=== PATIENT | female | born 2000 | race Caucasian/White ===

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

== ENCOUNTER 2019-04-27 10:48 | Emergency (ER) | payer BC ==
--- NOTE | 2019-04-27 11:05 | UC ---
Throat Pain/Nasal Miguel HPI - HPI Summary HPI Summary: 19 yo female presents with URI symptoms. She tells me that for the last 5 days she has had a sore throat, dry cough, and mild sinus congestion. Over the last 2 days her sore throat has gotten worse and her voice has been raspy. She states that her chest feels tight with breathing at times - worse in the cold air. Has not taken anything OTC for her symptoms. Denies fever, chills, SOB, chest pain, rash. She does not smoke. - History of Current Complaint Stated Complaint: SORE THROAT, CHEST CONGESTION Time Seen by Provider: 04/27/19 11:05 Hx Obtained From: Patient Hx Last Menstrual Period: 11/24/16 Onset/Duration: Sudden Onset Severity: Moderate Pain Intensity: 5 Pain Scale Used: 0-10 Numeric - Allergies/Home Medications Allergies/Adverse Reactions: Allergies Allergy/AdvReac Type Severity Reaction Status Date / Time No Known Allergies Allergy Verified 04/27/19 11:10 Home Medications: Home Medications Escitalopram * [Lexapro *] 20 mg PO DAILY 04/27/19 [History Confirmed 04/27/19] Ibuprofen TAB* [Advil TAB*] 200 mg PO Q6H PRN 04/27/19 [History Confirmed ] Norgestimate-Ethinyl Estradiol [Sprintec 28 0.25-35 mg-Mcg] 1 tab PO DAILY 04/27 [History Confirmed 04/27/19] PMH/Surg Hx/FS Hx/Imm Hx - Additional Past Medical History Additional PMH: None Psychological History: Anxiety, Depression - Surgical History Surgical History: None - Family History Known Family History: Negative: Diabetes - Social History Occupation: Student Lives: Dormitory/Roommates Alcohol Use: Occasionally Substance Use Type: None Smoking Status (MU): Never Smoked Tobacco Have You Smoked in the Last Year: No - Immunization History Vaccination Up to Date: Yes Review of Systems All Other Systems Reviewed And Are Negative: No Constitutional: Positive: Negative Skin: Positive: Negative Eyes: Positive: Negative ENT: Positive: Sore Throat Respiratory: Positive: Cough Cardiovascular: Positive: Negative Gastrointestinal: Positive: Negative Neurological: Positive: Negative Psychological: Positive: Negative Physical Exam - Summary Physical Exam Summary: GENERAL: NAD. WDWN. No pain distress. SKIN: No rashes, sores, lesions, or open wounds. HEENT: Head: AT/NC Eyes: EOM intact. Conjunctiva clear without inflammation or discharge. Ears: Hearing grossly normal. TMs intact, no bulging, erythema, or edema. Nose: Nasal mucosa pink and moist. NTTP maxillary and frontal sinus. Throat: Posterior oropharynx without exudates, erythema, or tonsillar enlargement. Uvula midline. NECK: Supple. Nontender. No lymphadenopathy. CHEST: CTAB. No accessory muscle use. Breathing comfortably and in no distress. CV: RRR. Pulses intact. Cap refill <2seconds NEURO: Alert. PSYCH: Age appropriate behavior. Triage Information Reviewed: Yes Vital Signs: Vital Signs: Temp Pulse Resp BP Pulse Ox 98.9 F 90 16 126/71 96 04/27/19 11:06 04/27/19 11:06 04/27/19 11:06 04/27/19 11:06 04/27/19 11:06 Laboratory Tests 04/27/19 11:20 Group A Strep Rapid Negative Vital Signs Reviewed: Yes Throat Pain/Nasal Course/Dx - Course Course Of Treatment: POC strep negative. Exam WNL. In the clinic she was given a duoneb treatment for her subjective chest tightness and felt easier to take a deep breath. Suspect viral URI. Advised to try OTC supportive care and f/u if symptoms worsen or do not improve - Differential Dx/Diagnosis Provider Diagnosis: Upper respiratory infection Discharge ED - Sign-Out/Discharge Documenting (check all that apply): Patient Departure All imaging exams completed and their final reports reviewed: No Studies - Discharge Plan Condition: Stable Disposition: HOME Patient Education Materials: Upper Respiratory Infection (ED) Referrals: Tristin Raines MD [Primary Care Provider] - Additional Instructions: Your symptoms are likely from a viral infection. Viral infections do not respond to antibiotics and are limited to the treatment of symptoms. Viral infections typically run their course in 7-10 days. Drink plenty of fluids, especially if you are running any fever. Use salt water gargles several times a day. Take over the counter acetaminophen (Tylenol) or ibuprofen (Advil, Motrin) according to directions as needed for pain or fever. You may also use Chloraseptic spray or Cepacol lonzenges according to directions which contain a numbing medication and can provide some temporary relief from a sore throat. Return here or follow up with your primary care provider in 7 days if symptoms persist. - Billing Disposition and Condition Condition: STABLE Disposition: Home
[2019-04-27 11:11] VITALS: BP 126/71
[2019-04-27] MEDS ORDERED: Albuterol/Ipratropium NEB.SOL* Albuterol 2.5 MG/Ipratropium 0.5 MG 3 ML INH ONE (11:16)
== END 2019-04-27 11:46 | disposition home or self-care (01) ==
LOC: UCEAST 10:48
DX: J06.9 Acute upper respiratory infection, unspecified (principal); F32.9 Major depressive disorder, single episode, unspecified; F41.9 Anxiety disorder, unspecified; Z79.899 Other long term (current) drug therapy
CPT/HCPCS: 87651; 99212; A9270-GY; G0463